=== PATIENT | female | born 1985 | race Caucasian/White ===

== ENCOUNTER 2018-04-23 04:18 | Emergency (ER) ==
[2018-04-23] MEDS ORDERED: SODIUM CHLORIDE 1,000 ML IV STA ×2 (04:20→04:30)
[2018-04-23] MEDS ORDERED: DILAUDID 2 MG/ML SDV IVP PRN (04:37)
[2018-04-23] MEDS ORDERED: ZOFRAN 4 MG/2 ML IVP STA (04:38)
[2018-04-23 04:48] VITALS: TEMP 98.9; BMI 19.8
[2018-04-23] MEDS ORDERED: DILAUDID 2 MG/ML SDV IM STA (05:07)
[2018-04-23] MEDS ORDERED: ZOFRAN 4 MG/2 ML IM STA (05:07)
[2018-04-23] MEDS: DILAUDID 2 MG/ML SYRINGE ONE ×2 (05:12→07:00)
--- NOTE | 2018-04-23 05:56 | ED.PDOC ---
General Stated Complaint: im hurting and im sick Time Seen by Physician: 04:20 Mode of Arrival: Wheelchair Information Source: Patient Exam Limitations: No limitations Nursing and Triage Documentation Reviewed and Agree: Yes Does patient meet sepsis criteria?: No System Inflammatory Response Syndrome: Not Applicable <DELANEYWILLIS Filed: 04/23/18 06:46> <EDENILSON MOORE Filed: 04/23/18 10:01> ED Provider: Dr. EDENILSON MOORE Chief Complaint: Abdominal Pain Sepsis Protocol: For patient's 13 years and over: Temp is 96.8 and below OR 101 and greater Pulse >90 BPM Resp >20/minute Acutely Altered Mental Status Are patient's symptoms suggestive of a new infection, such as: -Pneumonia -Skin, Soft Tissue -Endocarditis -UTI -Bone, Joint Infection -Implantable Device -Acute Abdominal Infection -Wound Infection -Meningitis -Blood Stream Catheter Infection -Unknown GI Complaint Exam - Abdominal Pain Complaint/Exam Onset: Gradual Duration: 2 hrs Symptoms Are: Still present Timing: Constant Initial Severity: Mild Current Severity: Moderate Location of Pain: Diffuse Radiates To: Reports: Back Character: Reports: Dull, Aching Aggravating: Reports: None Alleviating: Reports: Vomiting Associated Signs and Symptoms: Reports: Nausea, Vomiting. Denies: Diaphoresis, Fever, Cough, Chest pain, Dizziness, Back pain Ovarian Torsion Risk Factors: Reports: Hysterectomy Surgical Obstruction Risk Factors: Reports: Prior abdominal surgery Differential Diagnoses: Bowel Obstruction, Constipation, Pancreatitis, GB Quality Indicator For Non-Traumatic Chest Pain/Syncope: EKG Performed <LAINELAUREANOWILLIS Filed: 04/23/18 06:46> - Abdominal Pain Complaint/Exam Related Surgical History: Reports: Cholecystectomy, Appendectomy, LENIN Patient Rh Status: Unknown Abdominal Findings: Present: Other (mild diffuse pain ) <EDENILSON MOORE Filed: 04/23/18 10:01> Review of Systems - Review Of Systems Constitutional: Reports: No symptoms Eyes: Reports: No symptoms Ears, Nose, Mouth, Throat: Reports: No symptoms Respiratory: Reports: No symptoms Cardiac: Reports: No symptoms GI: Reports: Abdominal pain : Reports: No symptoms Musculoskeletal: Reports: No symptoms Skin: Reports: No symptoms Neurological: Reports: No symptoms Endocrine: Reports: No symptoms Hematologic/Lymphatic: Reports: No symptoms All Other Systems: Reviewed and Negative <WILLIS BALTAZAR Last Filed: 04/23/18 06:46> Past Medical History - Past Medical History Previously Healthy: No Endocrine: Reports: Unknown Cardiovascular: Reports: Unknown Respiratory: Reports: Unknown Hematological: Reports: Unknown Gastrointestinal: Reports: Unknown Genitourinary: Reports: Unknown Neuro/Psych: Reports: Unknown Musculoskeletal: Reports: Unknown Cancer: Reports: Unknown Last Menstrual Period: 2016-HYSTERECTOMY - Surgical History General Surgical History: Reports: Unknown - Family History Family History: Reports: Unknown - Social History Smoking Status: Former smoker Hx Substance Use: No Alcohol Screening: None - Immunizations Tetanus Shot up to Date: Yes <WILLIS BALTAZAR Filed: 04/23/18 06:46> - Past Medical History Endocrine: Reports: None Cardiovascular: Reports: None Respiratory: Reports: None Hematological: Reports: None Gastrointestinal: Reports: Crohn's. Denies: Unknown Neuro/Psych: Reports: None Musculoskeletal: Reports: None Cancer: Reports: None - Surgical History General Surgical History: Reports: Hysterectomy, Appendectomy, Other ( Spleenectomy). Denies: Unknown - Family History Family History: Reports: None - Social History Hx Substance Use: Yes (Marijuana 2 weeks ago ) <EDENILSON MOORE Filed: 04/23/18 10:01> Physical Exam - Physical Exam Appearance: Well-appearing, No pain distress, Well-nourished Eyes: GLADIS, EOMI, Conjunctiva clear ENT: Ears normal, Nose normal, Oropharynx normal Neck: Supple Respiratory: Airway patent, Breath sounds clear, Breath sounds equal, Respirations nonlabored Cardiovascular: RRR, Pulses normal, No rub, No murmur GI/: No masses, Bowel sounds normal, No Organomegaly, Tender Musculoskeletal: Normal strength, ROM intact, No edema, No calf tenderness Skin: Warm Neurological: Sensation intact Psychiatric: Affect appropriate, Mood appropriate <WILLIS BALTAZAR Filed: 04/23/18 06:46> Interpretation - EKG Interpretation Time of EKG #1: 06:00 Rate: Normal Rhythm: Sinus Ectopy: None Trimble: NL ST Segment: Normal Interpretation: nsr <WILLIS BALTAZAR Filed: 04/23/18 06:46> - Radiology Interpretation Radiology Interpretation By: Radiologist Radiology Results: Negative Exam Interpreted: CT Scan (Abdomen and pelvis ) <EDENILSON MOORE - Last Filed: 04/23/18 10:01> Re-Evaluation - Re-Evaluation Time of Re-Evaluation: 10:00 Status: Improved (Moderately controlled pain. ) <EDENILSON MOORE - Last Filed: 04/23/18 10:01> Physician Notification - Case Discussed Physician Notified: dr moore Time of Notification: 06:46 <WILLIS BALTAZAR - Last Filed: 04/23/18 06:46> Critical Care Note <WILLIS BALTAZAR - Last Filed: 04/23/18 06:46> - Critical Care Note Total Time (mins): 0 <EDENILSON MOORE - Last Filed: 04/23/18 10:01> - Critical Care Note Comments: Reviewed [place] Prescription database found Oxycodone prescribed last month. when asked if she had obtained any medications in the last three months she denied getting any pain medications at all. when asked as to why we were finding the oxycodone then she said oh yes sorry I forgot about that. Then she got angry stating that we were thinking that she is here to get pain medication. We stated that it was a requirement to look up every one for Narcotic prescription and that we were clarifying what she may have gotten. ( EDENILSON MOORE) Course - Course Hematology/Chemistry: 04/23/18 04:50 04/23/18 04:50 <WILLIS BALTAZAR - Last Filed: 04/23/18 06:46> - Course Hematology/Chemistry: 04/23/18 09:15 04/23/18 04:50 <EDENILSON MOORE - Last Filed: 04/23/18 10:01> - Course Orders, Labs, Meds: Lab Review 04/23/18 04/23/18 04/23/18 04:50 04:50 08:10 WBC 13.87 H RBC 4.15 L Hgb 12.6 Hct 36.9 L MCV 88.9 MCH 30.4 MCHC 34.1 RDW Coeff of Nat 12.7 Plt Count 34 L Immature Gran % (Auto) 0.4 Neut % (Auto) 61.6 Lymph % (Auto) 28.0 [place] % (Auto) 8.4 Eos % (Auto) 1.2 Baso % (Auto) 0.4 Immature Gran # (Auto) 0.1 Neut # (Auto) 8.5 H Lymph # (Auto) 3.9 H [place] # (Auto) 1.2 Eos # (Auto) 0.2 Baso # (Auto) 0.1 ESR 2 Sodium 142 Potassium 4.3 Chloride 107 Carbon Dioxide 24 Anion Gap 15.3 BUN 9 Creatinine 0.74 Estimated GFR (MDRD) 91.00 BUN/Creatinine Ratio 12.16 Glucose 96 Calcium 9.6 Total Bilirubin 0.5 AST 21 ALT 14 Alkaline Phosphatase 98 Total Creatine Kinase 123 CK-MB (CK-2) 1.5 CK-MB (CK-2) % 1.52596 Troponin I < 0.0100 Total Protein 7.3 Albumin 4.0 Globulin 3.3 Albumin/Globulin Ratio 1.21 Amylase 66 Lipase 11 Urine Color Urine Clarity Urine pH Ur Specific [place] Urine Protein Urine Glucose (UA) Urine Ketones Urine Blood Urine Nitrite Urine Bilirubin Urine Urobilinogen Ur Leukocyte Esterase Urine Microscopic RBC Ur Squamous Epith Cells Urine Opiates Screen Positive Ur Oxycodone Screen Negative Urine Methadone Screen Negative Ur Propoxyphene Screen Negative Ur Barbiturates Screen Negative U Tricyclic Antidepress Negative Ur Phencyclidine Scrn Negative Ur Amphetamine Screen Negative U Methamphetamines Scrn Negative U Benzodiazepines Scrn Negative Urine Cocaine Screen Negative U Cannabinoids Screen Positive 04/23/18 04/23/18 08:10 09:15 WBC 22.91 H D RBC 4.24 Hgb 12.5 Hct 37.9 MCV 89.4 MCH 29.5 MCHC 33.0 RDW Coeff of Nat 12.7 Plt Count 121 L D Immature Gran % (Auto) 0.3 Neut % (Auto) 83.1 Lymph % (Auto) 9.4 L [place] % (Auto) 6.9 Eos % (Auto) 0.0 Baso % (Auto) 0.3 Immature Gran # (Auto) 0.1 Neut # (Auto) 19.1 H Lymph # (Auto) 2.2 [place] # (Auto) 1.6 Eos # (Auto) 0.0 Baso # (Auto) 0.1 ESR Sodium Potassium Chloride Carbon Dioxide Anion Gap BUN Creatinine Estimated GFR (MDRD) BUN/Creatinine Ratio Glucose Calcium Total Bilirubin AST ALT Alkaline Phosphatase Total Creatine Kinase CK-MB (CK-2) CK-MB (CK-2) % Troponin I Total Protein Albumin Globulin Albumin/Globulin Ratio Amylase Lipase Urine Color Yellow Urine Clarity Clear Urine pH 7.0 Ur Specific [place] 1.015 Urine Protein 1+ Urine Glucose (UA) Negative Urine Ketones Trace Urine Blood Trace-intact Urine Nitrite Negative Urine Bilirubin Negative Urine Urobilinogen 1.0 Ur Leukocyte Esterase Negative Urine Microscopic RBC 2-5 Ur Squamous Epith Cells 5-10 Urine Opiates Screen Ur Oxycodone Screen Urine Methadone Screen Ur Propoxyphene Screen Ur Barbiturates Screen U Tricyclic Antidepress Ur Phencyclidine Scrn Ur Amphetamine Screen U Methamphetamines Scrn U Benzodiazepines Scrn Urine Cocaine Screen U Cannabinoids Screen Orders Category Date Time Status EKG-(ED ONLY) Stat CARDIO 04/23/18 04:20 Completed NPO REMINDER: IMAGING ONCE CARE 04/23/18 04:39 Completed IV [ED IV/MEDIPORT/POWERPORT] .ONCE EMERGENCY 04/23/18 04:20 Active AMYLASE Stat LAB 04/23/18 04:50 Completed CBC W/ AUTO DIFF Stat LAB 04/23/18 04:50 Completed CBC W/ AUTO DIFF Stat LAB 04/23/18 09:15 Completed COMPREHENSIVE METABOLIC PANEL Stat LAB 04/23/18 04:50 Completed CREATINE KINASE Stat LAB 04/23/18 04:50 Completed ESR Stat LAB 04/23/18 04:50 Completed LIPASE Stat LAB 04/23/18 04:50 Completed TROPONIN I Stat LAB 04/23/18 04:50 Completed URINALYSIS C & S IF INDICATED Stat LAB 04/23/18 08:10 Completed URINE DRUG SCREEN (RAPID FOR ED) [DRUG SCREEN, URINE, LAB 04/23/18 08:10 Completed RAPID] Stat 0.9 % Sodium Chloride [Saline Flush] MEDS 04/23/18 04:20 Active 1 syr IVF PRN PRN Dicyclomine Inj [Bentyl] MEDS 04/23/18 07:13 Discontinued 20 mg IM ONCE STA Hydromorphone HCl [Dilaudid 2 mg/ml Sdv] MEDS 04/23/18 05:07 Discontinued 1 mg IM ONCE STA Hydromorphone HCl [Dilaudid 2 mg/ml Sdv] MEDS 04/23/18 06:47 Discontinued 1 mg IVP ONCE STA Hydromorphone HCl [Dilaudid 2 mg/ml Sdv] MEDS 04/23/18 04:37 Active 1 mg IVP Q2HR PRN Hydromorphone HCl/Pf [Dilaudid 2 mg/ml Syringe] MEDS 04/23/18 04:54 Discontinued 2 mg .ROUTE .STK-MED ONE Ketorolac Tromethamine [Toradol] MEDS 04/23/18 07:13 Discontinued 30 mg IVP ONCE STA Ondansetron HCl/Pf [Zofran 4 mg/2 ml] MEDS 04/23/18 05:07 Discontinued 4 mg IM ONCE STA Ondansetron HCl/Pf [Zofran 4 mg/2 ml] MEDS 04/23/18 04:38 Discontinued 4 mg IVP ONCE STA Promethazine HCl [Phenergan 25 mg/ml Vial] MEDS 04/23/18 06:07 Discontinued 25 mg .ROUTE .STK-MED ONE Promethazine HCl [Phenergan 25 mg/ml Vial] 25 mg MEDS 04/23/18 06:04 Discontinued 0.9 % Sodium Chloride [Sodium Chloride] 50 ml IV ONCE Sodium Chloride 0.9% [Sodium Chloride] 1,000 ml MEDS 04/23/18 04:20 Discontinued IV 100 mls/hr Sodium Chloride 0.9% [Sodium Chloride] 1,000 ml MEDS 04/23/18 04:30 Active IV 150 mls/hr CT ABDOMEN/PELVIS W/WO CONTRAS Stat RADS 04/23/18 04:39 Completed Medications Generic Name Dose Route Start Last Admin Trade Name Freq PRN Reason Stop Dose Admin Hydromorphone HCl 1 mg 04/23/18 04:37 04/23/18 05:43 Dilaudid 2 Mg/Ml Sdv IVP 1 mg Q2HR PRN Administration Abdominal Pain Sodium Chloride 1,000 mls @ 150 mls/hr 04/23/18 04:30 04/23/18 05:43 Sodium Chloride IV 04/23/18 10:59 150 mls/hr .Q6H40M STA Administration Sodium Chloride 1 syr 04/23/18 04:20 04/23/18 05:44 Saline Flush IVF 1 syr PRN PRN Administration To flush IV Discontinued Medications Generic Name Dose Route Start Last Admin Trade Name Freq PRN Reason Stop Dose Admin Dicyclomine HCl 20 mg 04/23/18 07:13 04/23/18 07:34 Bentyl IM 04/23/18 07:14 20 mg ONCE STA Administration Hydromorphone HCl 1 mg 04/23/18 05:07 04/23/18 05:13 Dilaudid 2 Mg/Ml Sdv IM 04/23/18 05:08 1 mg ONCE STA Administration Hydromorphone HCl 1 mg 04/23/18 06:47 04/23/18 07:15 Dilaudid 2 Mg/Ml Sdv IVP 04/23/18 06:48 Not Given ONCE STA Sodium Chloride 1,000 mls @ 100 mls/hr 04/23/18 04:20 Sodium Chloride IV 04/23/18 14:19 .Q10H STA Promethazine HCl 25 mg/ Sodium 51 mls @ 75 mls/hr 04/23/18 06:04 04/23/18 06: 11 Chloride IV 04/23/18 06:44 75 mls/hr ONCE STA Administration Ketorolac Tromethamine 30 mg 04/23/18 07:13 04/23/18 07:33 Toradol IVP 04/23/18 07:14 30 mg ONCE STA Administration Ondansetron HCl 4 mg 04/23/18 04:38 04/23/18 05:47 Zofran 4 Mg/2 Ml IVP 04/23/18 04:39 4 mg ONCE STA Administration Ondansetron HCl 4 mg 04/23/18 05:07 04/23/18 05:13 Zofran 4 Mg/2 Ml IM 04/23/18 05:08 4 mg ONCE STA Administration Vital Signs: Temp Pulse Resp BP Pulse Ox 04/23/18 04:19 98.9 F 95 H 28 H 168/109 H 96 Departure <WILLIS BALTAZAR - Last Filed: 04/23/18 06:46> - Departure Time of Disposition: 09:53 Pt referred to PMD for follow-up: Yes IPMP verified?: No Disposition Discussed With: Patient <EDENILSON MOORE - Last Filed: 04/23/18 10:01> - Departure Disposition: HOME SELF-CARE Discharge Problem: Abdominal pain Instructions: Abdominal Pain (ED) Condition: Stable Additional Instructions: Continue Home Bentyl as needed Take Tylenol as needed for pain Push fluids Follow up with clinic for GI referral. Prescriptions: Ondansetron HCl [Zofran Tab] 4 mg PO Q8H PRN #14 tablet PRN Reason: Nausea / Vomiting Allergies/Adverse Reactions: Allergies No Known Drug Allergies Adverse Reaction (Verified 04/23/18 04:40) Home Medications: Ambulatory Orders Dicyclomine HCl [Bentyl] 10 mg PO BID PRN 04/23/18 Ondansetron HCl [Zofran Tab] 4 mg PO Q8H PRN #14 tablet 04/23/18
[2018-04-23] MEDS ORDERED: PHENERGAN 25 MG/ML VIAL 25 MG in SODIUM CHLORIDE 50 ML IV STA (06:04)
[2018-04-23] MEDS ORDERED: PHENERGAN 25 MG/ML VIAL ONE (06:07)
[2018-04-23] MEDS ORDERED: DILAUDID 2 MG/ML SDV IVP STA (06:47)
[2018-04-23] MEDS ORDERED: BENTYL IM STA (07:13)
[2018-04-23] MEDS ORDERED: TORADOL IVP STA (07:13)
--- NOTE | 2018-04-23 07:52 | CT ---
Exam: CT of the abdomen and pelvis without and with contrast History: Abdominal pain and Crohn disease Technique: [address] of the abdomen and pelvis without and with contrast FINDINGS: The lung bases are clear. No significant liver abnormality. The adrenals, pancreas and spl een are unremarkable. The stomach and hiatus are unremarkable.Prior cholecystectomy. Kidneys and prox imal collecting system are unremarkable. The appendix is not seen. Bowel loops demonstrate normal arnulfo iber. No inflamatory change seen in the mesentery or retroperitoneum. Vascular structures appear norm al. Prior hysterectomy. Normal urinary bladder. No pelvic fat inflammation. Normal pelvic colonic loop s. No acute findings of the skeleton. Impression: 1. No inflammatory process, bowel or urinary obstruction is seen.
[2018-04-23 10:11] VITALS: BP 109/59
== END 2018-04-23 10:40 | disposition home or self-care (01) ==
LOC: ED 04:18
DX: R10.9 Unspecified abdominal pain (principal); R11.2 Nausea with vomiting, unspecified
CPT/HCPCS: 36415; 80053; 80306; 81001; 82150; 82550; 82553; 83690; 84484; 85025; 85651; 93005; 93010; 96361; 96365; 96372; 96375; 96376; 99283